=== PATIENT | female | born 1975 | race African-American/Black ===

== ENCOUNTER 2020-11-29 17:38 | Emergency (ER) | payer OTHER, SELFPAY ==
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
[2020-11-29 17:58] VITALS: BP 193/113; PULSE 63; RESP 18; TEMP 36.1; O2SAT 100
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
== END 2020-11-29 18:55 | disposition home or self-care (01) ==
PROVIDERS: Emergency Provider Nurse Practitioner; PCP Internal Medicine Infectious Disease
DX: S39.92XA Unspecified injury of lower back, initial encounter (principal); V49.50XA Passenger injured in collision with unspecified motor vehicles in traffic accident, initial encounter
CPT/HCPCS: 72100; 99203; G0463